=== PATIENT | male | born 1945 | race African-American/Black ===

== ENCOUNTER → 2017-10-02 | Outpatient (CLI) | payer OTHER ==
[~2017-10-02] MED LIST: ACET-2178 PO; FOLI-43 PO; GABA300C PO; HYDR-4134 PO; LOSA50TA20 PO; METO25TA6 PO; NIFE60TA64 PO; RIVA10TA PO; SUCR1TAB PO; TAMS-11 PO; TEMA15CA PO; THIAMINE PO; TRAM50TA3 PO; [UNRECOGNIZED DRUG - OTHER]
[2017-10-02 11:39] LABS: BG BASE EXCESS 0.7 mmol/L (-2.0-2.0); BG CARBOXYHEMOGLOBIN 0.7 % (0.5-1.5); BG DEOXYHEMOGLOBIN 2.5 % (0.0-5.0); BG FRACTION INSPIRED OXYGEN 21; BG HCO3 ACT 24.2 mmol/L (22.0-26.0); BG METHEMOGLOBIN 0.2 % (0.0-1.5); BG OXYGEN SATURATION 97.5 % (92.0-98.5); BG OXYHEMOGLOBIN 96.6 % (94.0-97.0); BG PH 7.446 (7.350-7.450); BG SAMPLE SITE RIGHT RADIAL; BG TOTAL HEMOGLOBIN 16.6 g/dL (12.0-18.0); BG VENT MODE ROOM AIR
== END | disposition home or self-care (01) ==
LOC: LAB 10:49
PROVIDERS: ATTEND Internal Medicine Pulmonary Disease
DX: I26.99 Other pulmonary embolism without acute cor pulmonale (principal)
CPT/HCPCS: 36600; 82375; 82805

== ENCOUNTER 2019-09-10 19:48 | Inpatient (IN) | payer MEDICARE, OTHER ==
[~2019-09-10] VITALS: Ht 190.5 cm; Wt 100.2 kg
[~2019-09-10 19:48] MED LIST changes: -ACET-2178 PO; -LOSA50TA20 PO; +LOSA50TA41 PO; +TOPUD PO
[2019-09-10] MEDS ORDERED: SODIUM CHLORIDE 0.9% 500 ML IV ONE (20:15)
[2019-09-10 20:40] LABS: BASOPHILS % 0.5 % (0.0-2.0); EOSINOPHILS % 1.5 % (0.0-5.0); HEMATOCRIT. 33.4 % (42.0-52.0); HEMOGLOBIN. 11.3 g/dL (14.0-18.0); LYMPHOCYTES % 55.4 % (20.0-50.0); MEAN CORPUSCULAR HEMOGLOBIN 29.1 pg (28.0-32.0); MEAN CORPUSCULAR VOLUME 86.1 fL (80.0-94.0); MEAN PLATELET VOLUME 9.6 fl (7.4-10.4); MONOCYTES % 7.9 % (2.0-8.0); NEUTROPHILS % 34.7 % (40.0-76.0); PLATELET 132 x1000/uL (130-400); RED BLOOD CELL COUNT 3.88 mill/uL (4.7-6.1); RED CELL DISTRIBUTION WIDTH 14.2 % (11.6-14.6)
[2019-09-10 20:42] LABS: CHLORIDE 111 mEq/L (98-107)
[2019-09-10 22:47] LABS: *AMPHETAMINES SCREEN URINE NEGATIVE (NEGATIVE); *BARBITURATES SCREEN URINE NEGATIVE (NEGATIVE)
[2019-09-10 22:48] LABS: *BENZODIAZEPINES SCREEN URINE NEGATIVE (NEGATIVE); *COCAINE SCREEN URINE NEGATIVE (NEGATIVE); CANNABINOID URINE SCREEN NEGATIVE (NEGATIVE); METHADONE URINE SCREEN NEGATIVE (NEGATIVE); OPIATES URINE SCREEN NEGATIVE (NEGATIVE); PHENCYCLIDINE URINE SCREEN NEGATIVE (NEGATIVE)
[2019-09-10 23:39] VITALS: BP 136/66
[2019-09-11] VITALS (13 sets, daily range): BP systolic 127–180; BP diastolic 56–86
[2019-09-11] MEDS ORDERED: DOXA8TAB81 MT (00:23)
[2019-09-11] MEDS ORDERED: OMEP20TA2 MT (00:23)
[2019-09-11] MEDS ORDERED: TAMS-11 PO (00:23)
[2019-09-11] MEDS ORDERED: SUCR1TAB PO (00:23)
[2019-09-11] MEDS ORDERED: DONE10TA36 MT (00:23)
[2019-09-11] MEDS ORDERED: MEMA10TA55 MT (00:23)
[2019-09-11] MEDS ORDERED: METO-411 MT (00:23)
[2019-09-11] MEDS ORDERED: HYDR-4134 MT (00:23)
[2019-09-11] MEDS ORDERED: FOLI-43 MT (00:23)
[2019-09-11] MEDS ORDERED: IBUP-2030 MT (00:23)
[2019-09-11] MEDS ORDERED: GABA-290 MT (00:23)
[2019-09-11] MEDS ORDERED: NIFE20CA MT (00:23)
[2019-09-11] MEDS ORDERED: LOPHC2 MT (00:23)
[2019-09-11] MEDS ORDERED: LOSA100T32 MT (00:23)
[2019-09-11] MEDS ORDERED: HYDR12.54 PO (00:23)
[2019-09-11] MEDS ORDERED: ATROPINE SULFATE 1MG/ML VIAL IV PRN (00:45)
[2019-09-11] MEDS: HYDROCODONE/ACETAMINOPHEN 5/325MG TABLET PO PRN ×4 (01:03→21:54)
[2019-09-11] MEDS ORDERED: DEXT 5%/0.9% NACL KCL 20MEQ/L 1,000 ML IV ONE (02:00)
[2019-09-11] MEDS ORDERED: POTASSIUM CHLORIDE 20MEQ TABLET SR PO NR (02:00)
[2019-09-11 06:50] LABS: T4 FREE 0.96 ng/dL (0.76-1.46)
[2019-09-11 07:10] LABS: BASOPHILS % 0.3 % (0.0-2.0); EOSINOPHILS % 1.6 % (0.0-5.0); HEMOGLOBIN. 10.7 g/dL (14.0-18.0); MEAN CORPUSCULAR HEMOGLOBIN 28.8 pg (28.0-32.0); MEAN CORPUSCULAR VOLUME 86.2 fL (80.0-94.0); MEAN PLATELET VOLUME 9.8 fl (7.4-10.4); NEUTROPHILS % 28.1 % (40.0-76.0); PLATELET 136 x1000/uL (130-400); RED BLOOD CELL COUNT 3.72 mill/uL (4.7-6.1); RED CELL DISTRIBUTION WIDTH 14.3 % (11.6-14.6)
[2019-09-11] MEDS: GABAPENTIN 300MG CAPSULE PO SCH ×3 (09:03→21:52)
[2019-09-11] MEDS: PANTOPRAZOLE 40MG DR TABLET PO SCH (09:03)
[2019-09-11] MEDS: HEPARIN 5000 UNITS/ML VIAL SUBCUT SCH ×2 (09:03→21:51)
[2019-09-11] MEDS: TAMSULOSIN HCL 0.4MG SR CAPSULE PO SCH (09:03)
[2019-09-11] MEDS: HYDRALAZINE HCL 25MG TABLET PO SCH ×3 (09:04→21:52)
[2019-09-11] MEDS: AMLODIPINE 5MG TABLET PO SCH (11:13)
[2019-09-11] MEDS ORDERED: ACETAMINOPHEN 325MG TABLET PO PRN (11:45)
[2019-09-11] MEDS ORDERED: IPRATROPIUM/ALBUTEROL 0.5-3(2.5)MG/3ML NEB HHN PRN (15:15)
[2019-09-11] MEDS: SUCRALFATE 1G TABLET PO SCH ×2 (15:40→21:50)
[2019-09-11] MEDS: FOLIC ACID 1MG TABLET PO SCH (15:40)
[2019-09-11] MEDS: THIAMINE HCL 100MG TABLET PO SCH (15:40)
[2019-09-11 15:50] LABS: CLARITY URINE CLEAR (CLEAR); COLOR URINE YELLOW (YELLOW); KETONES URINE NEGATIVE (NEGATIVE); LEUKOCYTE ESTERASE URINE NEGATIVE (NEGATIVE); NITRITE URINE NEGATIVE (NEGATIVE); OCCULT BLOOD URINE NEGATIVE (NEGATIVE); PH URINE 5.5 (4.5-8.0); PROTEIN URINE NEGATIVE (NEGATIVE); SPECIFIC GRAVITY URINE 1.021 (1.005-1.030); UROBILINOGEN URINE 0.2 E.U./dL (0.2-1.0)
[2019-09-11 16:58] LABS: INR 1.1
[2019-09-12] VITALS (12 sets, daily range): BP systolic 153–175; BP diastolic 71–107
[2019-09-12] MEDS: HYDRALAZINE HCL 25MG TABLET PO SCH (05:54)
[2019-09-12] MEDS: SUCRALFATE 1G TABLET PO SCH ×4 (05:54→21:47)
[2019-09-12] MEDS: GABAPENTIN 300MG CAPSULE PO SCH ×3 (05:54→21:47)
[2019-09-12] MEDS: PANTOPRAZOLE 40MG DR TABLET PO SCH (05:54)
[2019-09-12 07:11] LABS: BASOPHILS % 0.6 % (0.0-2.0); EOSINOPHILS % 1.9 % (0.0-5.0); HEMATOCRIT. 36.3 % (42.0-52.0); HEMOGLOBIN. 12.3 g/dL (14.0-18.0); LYMPHOCYTES % 67.7 % (20.0-50.0); MEAN CORPUSCULAR HEMOGLOBIN 28.8 pg (28.0-32.0); MEAN CORPUSCULAR VOLUME 85.1 fL (80.0-94.0); MEAN PLATELET VOLUME 10.2 fl (7.4-10.4); MONOCYTES % 6.8 % (2.0-8.0); PLATELET 146 x1000/uL (130-400); RED BLOOD CELL COUNT 4.27 mill/uL (4.7-6.1); RED CELL DISTRIBUTION WIDTH 14.2 % (11.6-14.6)
[2019-09-12 07:28] LABS: CHLORIDE 109 mEq/L (98-107)
[2019-09-12 07:36] LABS: TOTAL IRON BINDING CAPACITY 277 ug/dL (250-450)
[2019-09-12] MEDS: HEPARIN 5000 UNITS/ML VIAL SUBCUT SCH (08:10)
[2019-09-12] MEDS: TAMSULOSIN HCL 0.4MG SR CAPSULE PO SCH (08:10)
[2019-09-12] MEDS: THIAMINE HCL 100MG TABLET PO SCH (08:11)
[2019-09-12] MEDS: AMLODIPINE 5MG TABLET PO SCH ×2 (08:11→21:47)
[2019-09-12] MEDS: FOLIC ACID 1MG TABLET PO SCH (08:11)
[2019-09-12] MEDS: HYDROCODONE/ACETAMINOPHEN 5/325MG TABLET PO PRN ×3 (08:11→23:51)
[2019-09-12] MEDS: HYDRALAZINE HCL 50MG TABLET PO SCH ×2 (12:50→21:47)
[2019-09-13] VITALS (11 sets, daily range): BP systolic 107–187; BP diastolic 63–97
[2019-09-13] MEDS: HYDRALAZINE HCL 50MG TABLET PO SCH ×3 (06:44→21:31)
[2019-09-13] MEDS: SUCRALFATE 1G TABLET PO SCH ×4 (06:45→21:31)
[2019-09-13] MEDS: PANTOPRAZOLE 40MG DR TABLET PO SCH (06:45)
[2019-09-13] MEDS: GABAPENTIN 300MG CAPSULE PO SCH ×3 (06:45→21:31)
[2019-09-13 06:49] LABS: BASOPHILS % 0.7 % (0.0-2.0); HEMATOCRIT. 35.1 % (42.0-52.0); HEMOGLOBIN. 11.8 g/dL (14.0-18.0); LYMPHOCYTES % 58.9 % (20.0-50.0); MEAN CORPUSCULAR HEMOGLOBIN 28.7 pg (28.0-32.0); MEAN CORPUSCULAR VOLUME 85.5 fL (80.0-94.0); MEAN PLATELET VOLUME 9.8 fl (7.4-10.4); MONOCYTES % 8.9 % (2.0-8.0); NEUTROPHILS % 29.5 % (40.0-76.0); PLATELET 145 x1000/uL (130-400); RED BLOOD CELL COUNT 4.11 mill/uL (4.7-6.1); RED CELL DISTRIBUTION WIDTH 14.2 % (11.6-14.6)
[2019-09-13 07:13] LABS: CHLORIDE 109 mEq/L (98-107)
[2019-09-13] MEDS: THIAMINE HCL 100MG TABLET PO SCH (08:14)
[2019-09-13] MEDS: TAMSULOSIN HCL 0.4MG SR CAPSULE PO SCH (08:14)
[2019-09-13] MEDS: AMLODIPINE 5MG TABLET PO SCH ×2 (08:14→21:31)
[2019-09-13] MEDS: FOLIC ACID 1MG TABLET PO SCH (08:14)
[2019-09-13] MEDS ORDERED: MIDAZOLAM HCL 2 MG/2 ML VIAL ONE ×2 (08:46→10:17)
[2019-09-13] MEDS ORDERED: FENTANYL CITRATE/PF 50MCG/ML 2ML VIAL ONE ×2 (08:46→10:18)
[2019-09-13] MEDS ORDERED: GENTAMICIN SULF 40MG/ML 2ML VIAL ONE (08:46)
[2019-09-13] MEDS ORDERED: CEFAZOLIN 1000MG PREMIX 100 ML IV ONE (08:46)
[2019-09-13] MEDS ORDERED: LIDOCAINE HCL 1% 20ML VIAL (Pyxis) INJ ONE (08:47)
[2019-09-13] MEDS ORDERED: IODIXANOL 320MG/ML 100 ML BOTTLE IV ONE (08:47)
[2019-09-13] MEDS ORDERED: GENTAMICIN/NS IRRIGATION 500 ML IR ONE (08:47)
[2019-09-13] MEDS ORDERED: DIPHENHYDRAMINE 50MG/ML VIAL ONE (09:52)
[2019-09-13] MEDS ORDERED: HYDRALAZINE 20MG/ML VIAL ONE (10:34)
[2019-09-13] MEDS: HYDROCODONE/ACETAMINOPHEN 5/325MG TABLET PO PRN ×3 (11:26→21:32)
[2019-09-13] MEDS: METOPROLOL TARTRATE 50MG TABLET PO SCH ×3 (11:26→22:09)
[2019-09-13] MEDS: MEMANTINE HCL 10MG TABLET PO SCH (16:41)
[2019-09-13] MEDS: RIVAROXABAN 15 MG TABLET PO SCH (16:41)
[2019-09-14] VITALS (10 sets, daily range): BP systolic 141–172; BP diastolic 75–95
[2019-09-14] MEDS: HYDRALAZINE 20MG/ML VIAL IV PRN ×2 (00:23→16:46)
[2019-09-14] MEDS: FAMOTIDINE 20MG TABLET PO SCH ×2 (06:32→16:44)
[2019-09-14] MEDS: GABAPENTIN 300MG CAPSULE PO SCH ×2 (06:32→14:31)
[2019-09-14] MEDS: HYDRALAZINE HCL 50MG TABLET PO SCH (06:33)
[2019-09-14] MEDS: SUCRALFATE 1G TABLET PO SCH ×3 (06:33→16:44)
[2019-09-14] MEDS: HYDROCODONE/ACETAMINOPHEN 5/325MG TABLET PO PRN ×2 (06:33→11:46)
[2019-09-14] MEDS: RIVAROXABAN 15 MG TABLET PO SCH (06:33)
[2019-09-14 07:28] LABS: CHLORIDE 107 mEq/L (98-107)
[2019-09-14 07:37] LABS: BASOPHILS % 0.4 % (0.0-2.0); EOSINOPHILS % 1.9 % (0.0-5.0); HEMATOCRIT. 39.4 % (42.0-52.0); HEMOGLOBIN. 13.3 g/dL (14.0-18.0); LYMPHOCYTES % 54.9 % (20.0-50.0); MEAN PLATELET VOLUME 9.6 fl (7.4-10.4); MONOCYTES % 7.5 % (2.0-8.0); NEUTROPHILS % 35.3 % (40.0-76.0); PLATELET 160 x1000/uL (130-400); RED BLOOD CELL COUNT 4.58 mill/uL (4.7-6.1); RED CELL DISTRIBUTION WIDTH 14.5 % (11.6-14.6)
[2019-09-14] MEDS: TAMSULOSIN HCL 0.4MG SR CAPSULE PO SCH (08:56)
[2019-09-14] MEDS: THIAMINE HCL 100MG TABLET PO SCH (08:57)
[2019-09-14] MEDS: MEMANTINE HCL 10MG TABLET PO SCH ×2 (08:57→16:44)
[2019-09-14] MEDS: AMLODIPINE 5MG TABLET PO SCH (08:57)
[2019-09-14] MEDS: METOPROLOL TARTRATE 50MG TABLET PO SCH (08:58)
[2019-09-14] MEDS: FOLIC ACID 1MG TABLET PO SCH (08:58)
[2019-09-14] MEDS ORDERED: DONEPEZIL HCL 10MG TABLET PO SCH (09:00)
[2019-09-14] MEDS ORDERED: CEPH-568 MT (10:56)
[2019-09-14] MEDS ORDERED: TRAM50TA MT (10:56)
[2019-09-14] MEDS ORDERED: HYDRALAZINE 20MG/ML VIAL IV NR (11:00)
[2019-09-14] MEDS ORDERED: HYDRALAZINE HCL 50MG TABLET PO SCH (14:00)
[2019-11-26] MEDS ORDERED: HYDR-3282 PO (00:38)
== END 2019-09-14 17:29 | disposition home or self-care (01) | DRG 242 ==
LOC: ER 19:48 → ENRESERV 22:28 → 3WST 23:03
PROVIDERS: ADMIT Internal Medicine; ATTEND Internal Medicine
PROC: 0JH606Z Insertion of Pacemaker, Dual Chamber into Chest Subcutaneous Tissue and Fascia, Open Approach (ICD-10-PCS; principal; 2019-09-13)
PROC: 02H63JZ Insertion of Pacemaker Lead into Right Atrium, Percutaneous Approach (ICD-10-PCS; 2019-09-13)
PROC: B5171ZZ Fluoroscopy of Left Subclavian Vein using Low Osmolar Contrast (ICD-10-PCS; 2019-09-13)
PROC: 02HK3JZ Insertion of Pacemaker Lead into Right Ventricle, Percutaneous Approach (ICD-10-PCS; 2019-09-13)
DX: I49.5 Sick sinus syndrome (principal); I50.33 Acute on chronic diastolic (congestive) heart failure; N17.9 Acute kidney failure, unspecified; I11.0 Hypertensive heart disease with heart failure; D64.9 Anemia, unspecified; E86.0 Dehydration; E87.6 Hypokalemia; F03.90 Unspecified dementia, unspecified severity, without behavioral disturbance, psychotic disturbance, mood disturbance, and anxiety; N40.0 Benign prostatic hyperplasia without lower urinary tract symptoms; I16.0 Hypertensive urgency; R73.03 Prediabetes; I95.9 Hypotension, unspecified; R73.9 Hyperglycemia, unspecified; G90.8 Other disorders of autonomic nervous system; Z86.73 Personal history of transient ischemic attack (TIA), and cerebral infarction without residual deficits; Z95.0 Presence of cardiac pacemaker; Z79.1 Long term (current) use of non-steroidal anti-inflammatories (NSAID); Z79.01 Long term (current) use of anticoagulants; Z79.899 Other long term (current) drug therapy; Z03.818 Encounter for observation for suspected exposure to other biological agents ruled out
CPT/HCPCS: 33208; 36415; 71045; 75820; 80048; 80053; 80061; 80305; 81003; 83036; 83540; 83550; 83735; 83880; 84153; 84439; 84443; 84484; 85025; 86850; 86900; 93005; 93306; 93970; 96365; 97116; 97162; 99291; C1785; C1893; C1898; J0360; J0690; J1200; J1580; J1644; J2250; J3010; J3490; J7040; Q9967; G0103; U0003-CS

== ENCOUNTER 2019-10-08 00:39 | Inpatient (IN) | payer OTHER ==
[~2019-10-08] VITALS: Ht 190.5 cm; Wt 100.2 kg
[~2019-10-08 00:39] MED LIST changes: +CEPH-568 MT; +DOXA8TAB81 MT; +FOLI-43 MT; -FOLI-43 PO; +GABA-290 MT; -GABA300C PO; +HYDR-4134 MT; -HYDR-4134 PO; +HYDR12.54 PO; +IBUP-2030 MT; +LOSA100T32 MT; -LOSA50TA41 PO; -METO25TA6 PO; +NIFE20CA MT; -NIFE60TA64 PO; +OMEP20TA2 MT; -RIVA10TA PO; -THIAMINE PO; +TRAM50TA MT; -TRAM50TA3 PO
[2019-10-08] MEDS ORDERED: SODIUM CHLORIDE 0.9% 1,000 ML IV ONE (01:27)
[2019-10-08] MEDS ORDERED: ASPIRIN 81MG TABLET PO ONE (01:30)
[2019-10-08 02:38] LABS: CHLORIDE 110 mEq/L (98-107)
[2019-10-08 02:49] LABS: BASOPHILS % 0.5 % (0.0-2.0); HEMATOCRIT. 35.3 % (42.0-52.0); HEMOGLOBIN. 11.7 g/dL (14.0-18.0); LYMPHOCYTES % 50.6 % (20.0-50.0); MEAN CORPUSCULAR HEMOGLOBIN 28.8 pg (28.0-32.0); MEAN CORPUSCULAR VOLUME 87.3 fL (80.0-94.0); MONOCYTES % 8.6 % (2.0-8.0); NEUTROPHILS % 38.3 % (40.0-76.0); PLATELET 181 x1000/uL (130-400); RED BLOOD CELL COUNT 4.05 mill/uL (4.7-6.1); RED CELL DISTRIBUTION WIDTH 15.1 % (11.6-14.6)
[2019-10-08 07:59] LABS: CLARITY URINE CLEAR (CLEAR); COLOR URINE YELLOW (YELLOW); KETONES URINE TRACE (NEGATIVE); LEUKOCYTE ESTERASE URINE NEGATIVE (NEGATIVE); NITRITE URINE NEGATIVE (NEGATIVE); OCCULT BLOOD URINE NEGATIVE (NEGATIVE); PROTEIN URINE NEGATIVE (NEGATIVE); SPECIFIC GRAVITY URINE 1.019 (1.005-1.030); UROBILINOGEN URINE 0.2 E.U./dL (0.2-1.0)
[2019-10-08 10:00] VITALS: BP 143/84
[2019-10-08 12:05] VITALS: BP 115/82
[2019-10-08] MEDS ORDERED: POTASSIUM CHLORIDE 20MEQ TABLET SR PO NR (13:15)
[2019-10-08] MEDS ORDERED: MAGNESIUM/ALUMINUM HYDROXIDE/SIMETHICONE 30ML UDC PO PRN (13:45)
[2019-10-08] MEDS ORDERED: GUAIFENESIN 200MG/10ML SUGAR FREE UDC PO PRN (13:45)
[2019-10-08] MEDS ORDERED: LORAZEPAM 0.5MG TABLET PO PRN (13:45)
[2019-10-08] MEDS ORDERED: ACETAMINOPHEN 650MG/20.3ML UDC GT PRN (13:45)
[2019-10-08] MEDS ORDERED: DIPHENHYDRAMINE 50MG/ML VIAL IV PRN (13:45)
[2019-10-08] MEDS ORDERED: ONDANSETRON HCL 4MG/2ML INJ IV PRN (13:45)
[2019-10-08] MEDS ORDERED: NA PHOS,M-B/NA PHOS,DI-BA ENEMA 118ML PR PRN (13:45)
[2019-10-08] MEDS ORDERED: DOCUSATE SODIUM 100MG CAPSULE PO PRN (13:45)
[2019-10-08] MEDS ORDERED: IPRATROPIUM/ALBUTEROL 0.5-3(2.5)MG/3ML NEB NEB PRN (13:45)
[2019-10-08] MEDS: SODIUM CHLORIDE 0.45% 1,000 ML IV SCH ×2 (14:00→23:06)
[2019-10-08 16:00] VITALS: BP 132/85
[2019-10-08 16:03] LABS: *AMPHETAMINES SCREEN URINE NEGATIVE (NEGATIVE); *BARBITURATES SCREEN URINE NEGATIVE (NEGATIVE); *BENZODIAZEPINES SCREEN URINE NEGATIVE (NEGATIVE); *COCAINE SCREEN URINE NEGATIVE (NEGATIVE)
[2019-10-08 16:04] LABS: CANNABINOID URINE SCREEN NEGATIVE (NEGATIVE); METHADONE URINE SCREEN NEGATIVE (NEGATIVE); OPIATES URINE SCREEN NEGATIVE (NEGATIVE); PHENCYCLIDINE URINE SCREEN NEGATIVE (NEGATIVE)
[2019-10-08] MEDS: HYDROCODONE/ACETAMINOPHEN 5/325MG TABLET PO PRN (17:38)
[2019-10-08 20:00] VITALS: BP 155/74
[2019-10-08] MEDS: FAMOTIDINE 20MG TABLET PO SCH (20:14)
[2019-10-08] MEDS: HEPARIN 5000 UNITS/ML VIAL SUBCUT SCH (20:15)
[2019-10-08 20:35] LABS: INR 1.1; PROTHROMBIN TIME 11.9 sec (9.6-11.0)
[2019-10-08 20:37] LABS: CREATINE KINASE 169 IU/L (39-308)
[2019-10-08 20:38] LABS: CREATINE KINASE MB FRACTION 1.8 ng/mL (0.5-3.6)
[2019-10-08 21:40] VITALS: BP 161/91
[2019-10-08] MEDS: CLONIDINE 0.1MG TABLET PO PRN (22:06)
[2019-10-08] MEDS: GABAPENTIN 300MG CAPSULE PO SCH (22:13)
[2019-10-09] VITALS (8 sets, daily range): BP systolic 117–172; BP diastolic 79–101
[2019-10-09] MEDS: CLONIDINE 0.1MG TABLET PO PRN (05:06)
[2019-10-09] MEDS ORDERED: HYDRALAZINE 20MG/ML VIAL IV PRN (05:30)
[2019-10-09 07:48] LABS: BASOPHILS % 0.7 % (0.0-2.0); EOSINOPHILS % 2.8 % (0.0-5.0); HEMATOCRIT. 35.6 % (42.0-52.0); HEMOGLOBIN. 11.9 g/dL (14.0-18.0); LYMPHOCYTES % 50.7 % (20.0-50.0); MEAN CORPUSCULAR VOLUME 86.6 fL (80.0-94.0); MEAN PLATELET VOLUME 9.3 fl (7.4-10.4); MONOCYTES % 9.4 % (2.0-8.0); NEUTROPHILS % 36.4 % (40.0-76.0); PLATELET 180 x1000/uL (130-400); RED BLOOD CELL COUNT 4.11 mill/uL (4.7-6.1); RED CELL DISTRIBUTION WIDTH 14.9 % (11.6-14.6)
[2019-10-09 07:55] LABS: CHLORIDE 108 mEq/L (98-107)
[2019-10-09 08:09] LABS: HDL CHOLESTEROL 44 mg/dL (40-59)
[2019-10-09 08:11] LABS: CREATINE KINASE 193 IU/L (39-308)
[2019-10-09 08:13] LABS: CREATINE KINASE MB FRACTION 1.7 ng/mL (0.5-3.6); LDL CHOLESTEROL 99 mg/dL (5-100)
[2019-10-09 08:15] LABS: T4 FREE 0.95 ng/dL (0.76-1.46)
[2019-10-09] MEDS: ASPIRIN 81MG EC TABLET PO SCH (10:00)
[2019-10-09] MEDS: AMLODIPINE 10MG TABLET PO SCH (10:00)
[2019-10-09] MEDS: SODIUM CHLORIDE 0.45% 1,000 ML IV SCH (10:01)
[2019-10-09] MEDS: HEPARIN 5000 UNITS/ML VIAL SUBCUT SCH ×2 (10:01→21:27)
[2019-10-09] MEDS ORDERED: HYDRALAZINE HCL 100MG TABLET PO SCH (13:15)
[2019-10-09] MEDS ORDERED: VANCOMYCIN 2,000 MG in DEXT 5% WATER 500 ML IV SCH (15:00)
[2019-10-09] MEDS: GABAPENTIN 300MG CAPSULE PO SCH (16:30)
[2019-10-09] MEDS: HYDROCODONE/ACETAMINOPHEN 5/325MG TABLET PO PRN (16:50)
[2019-10-09] MEDS: FAMOTIDINE 20MG TABLET PO SCH (21:26)
[2019-10-09] MEDS: HYDRALAZINE HCL 100MG TABLET PO SCH (21:26)
[2019-10-10] VITALS: BP_SYST 143; BP_SYST 150; BP_SYST 180; BP_DIAS 90; BP_DIAS 98; BP_DIAS 99
[2019-10-10] MEDS: SODIUM CHLORIDE 0.45% 1,000 ML IV SCH ×2 (00:51→15:45)
[2019-10-10 04:00] VITALS: BP 161/85
[2019-10-10] MEDS ORDERED: VANCOMYCIN 1500MG in DEXTROSE 5% WATER 250ML IV SCH (06:00)
[2019-10-10] MEDS: CLONIDINE 0.1MG TABLET PO PRN ×2 (06:04→12:33)
[2019-10-10 06:59] LABS: BASOPHILS % 1.1 % (0.0-2.0); EOSINOPHILS % 3.6 % (0.0-5.0); HEMATOCRIT. 34.9 % (42.0-52.0); HEMOGLOBIN. 11.7 g/dL (14.0-18.0); LYMPHOCYTES % 51.1 % (20.0-50.0); MEAN CORPUSCULAR HEMOGLOBIN 29.1 pg (28.0-32.0); MEAN CORPUSCULAR VOLUME 86.9 fL (80.0-94.0); MEAN PLATELET VOLUME 9.2 fl (7.4-10.4); MONOCYTES % 8.5 % (2.0-8.0); NEUTROPHILS % 35.7 % (40.0-76.0); PLATELET 180 x1000/uL (130-400); RED BLOOD CELL COUNT 4.02 mill/uL (4.7-6.1); RED CELL DISTRIBUTION WIDTH 15.1 % (11.6-14.6)
[2019-10-10 07:07] LABS: CHLORIDE 108 mEq/L (98-107)
[2019-10-10 08:00] VITALS: BP_SYST 126; BP_SYST 132; BP_DIAS 70; BP_DIAS 77; BP_DIAS 78
[2019-10-10] MEDS: AMLODIPINE 10MG TABLET PO SCH (09:29)
[2019-10-10] MEDS: ASPIRIN 81MG EC TABLET PO SCH (09:30)
[2019-10-10] MEDS: HYDRALAZINE HCL 100MG TABLET PO SCH (09:30)
[2019-10-10] MEDS: HEPARIN 5000 UNITS/ML VIAL SUBCUT SCH (09:31)
[2019-10-10 12:00] VITALS: BP 157/91
[2019-10-10] MEDS: HYDROCODONE/ACETAMINOPHEN 5/325MG TABLET PO PRN (13:18)
[2019-10-10 16:00] VITALS: BP 149/82
[2019-10-10 16:08] VITALS: BP 149/82
[2019-10-10] MEDS: GABAPENTIN 300MG CAPSULE PO SCH (16:27)
== END 2019-10-10 18:58 | disposition home or self-care (01) | DRG 682 ==
LOC: ER 00:39 → 7WST 03:23 → ENRESERV 07:39 → ER 10:17 → 5WST 21:35
PROVIDERS: ADMIT Internal Medicine; ATTEND Internal Medicine
DX: N17.9 Acute kidney failure, unspecified (principal); I50.33 Acute on chronic diastolic (congestive) heart failure; G90.8 Other disorders of autonomic nervous system; N40.0 Benign prostatic hyperplasia without lower urinary tract symptoms; R53.1 Weakness; I11.0 Hypertensive heart disease with heart failure; D64.9 Anemia, unspecified; E78.5 Hyperlipidemia, unspecified; E87.6 Hypokalemia; N31.2 Flaccid neuropathic bladder, not elsewhere classified; F03.90 Unspecified dementia, unspecified severity, without behavioral disturbance, psychotic disturbance, mood disturbance, and anxiety; Z79.899 Other long term (current) drug therapy; Z86.73 Personal history of transient ischemic attack (TIA), and cerebral infarction without residual deficits; Z95.0 Presence of cardiac pacemaker
CPT/HCPCS: 36415; 71045; 76770; 80048; 80053; 80061; 80305; 81003; 82550; 82553; 83605; 83880; 84153; 84439; 84443; 84484; 85025; 87635; 93005; 93970; 99291; J0360; J1644; J3370; J7030; J7060; G0103

== ENCOUNTER 2019-11-19 19:39 | Emergency (ER) | payer OTHER ==
[~2019-11-19] VITALS: Ht 182.9 cm; Wt 91.0 kg
[~2019-11-19 19:39] MED LIST changes: -CEPH-568 MT; -HYDR12.54 PO; -IBUP-2030 MT
[2019-11-19] MEDS ORDERED: SODIUM CHLORIDE 0.9% 1,000 ML IV ONE (20:00)
[2019-11-19 20:15] VITALS: BP 107/68
[2019-11-19 20:45] LABS: BASOPHILS % 0.6 % (0.0-2.0); EOSINOPHILS % 0.9 % (0.0-5.0); HEMATOCRIT. 34.1 % (42.0-52.0); HEMOGLOBIN. 11.3 g/dL (14.0-18.0); LYMPHOCYTES % 38.9 % (20.0-50.0); MEAN CORPUSCULAR HEMOGLOBIN 28.9 pg (28.0-32.0); MEAN CORPUSCULAR VOLUME 87.6 fL (80.0-94.0); MEAN PLATELET VOLUME 9.5 fl (7.4-10.4); MONOCYTES % 8.4 % (2.0-8.0); NEUTROPHILS % 51.2 % (40.0-76.0); PLATELET 163 x1000/uL (130-400); RED BLOOD CELL COUNT 3.89 mill/uL (4.7-6.1)
[2019-11-19 20:50] LABS: CHLORIDE 109 mEq/L (98-107)
== END 2019-11-19 23:29 | disposition home or self-care (01) ==
LOC: ER 19:39
DX: R53.83 Other fatigue (principal); N17.9 Acute kidney failure, unspecified; I25.2 Old myocardial infarction; I10 Essential (primary) hypertension; Z86.73 Personal history of transient ischemic attack (TIA), and cerebral infarction without residual deficits; Z79.899 Other long term (current) drug therapy
CPT/HCPCS: 36415; 80053; 83605; 84484; 85025; 93005; 96360; 99284; J7030

== ENCOUNTER → 2020-10-06 | Day surgery (SDC) | payer OTHER, MEDICAID ==
[~2020-10-06] VITALS: Ht 190.5 cm; Wt 97.5 kg
[~2020-10-06] MED LIST changes: +BUPIVACAINE HCL/PF 0.75% (7.5MG/ML) 10ML INJ NR; +HYDR-4348 PO; +IOHEXOL-300 50 ML BOTTLE IV ONE; +LIDOCAINE HCL 1% 20ML VIAL (Pyxis) INJ ONE; +ROPIVACAINE HCL 10MG/ML 20 ML VIAL EPI ONE; +ROPIVACAINE HCL 2MG/ML (0.2%) 200ML BOTTLE IR ONE; +SODIUM CHLORIDE 0.9% 10ML VIAL ONE; +TRIAMCINOLONE ACETONIDE 40MG/ML 1ML VIAL IM NR; -[UNRECOGNIZED DRUG - OTHER]
== END | disposition home or self-care (01) ==
LOC: RAD 10:26
PROVIDERS: ATTEND Orthopaedic Surgery
DX: M16.11 Unilateral primary osteoarthritis, right hip (principal); Z79.899 Other long term (current) drug therapy; Z82.49 Family history of ischemic heart disease and other diseases of the circulatory system; Z98.890 Other specified postprocedural states
CPT/HCPCS: 20610; 77002; J3301; J3490; Q9967; 20611

== ENCOUNTER 2020-10-14 14:25 | Inpatient (IN) | payer OTHER, MEDICAID ==
[2020-10-14] VITALS: BP 131/67
[~2020-10-14] VITALS: Ht 182.9 cm; Wt 100.7 kg
[~2020-10-14 14:25] MED LIST changes: -BUPIVACAINE HCL/PF 0.75% (7.5MG/ML) 10ML INJ NR; -IOHEXOL-300 50 ML BOTTLE IV ONE; -LIDOCAINE HCL 1% 20ML VIAL (Pyxis) INJ ONE; -ROPIVACAINE HCL 10MG/ML 20 ML VIAL EPI ONE; -ROPIVACAINE HCL 2MG/ML (0.2%) 200ML BOTTLE IR ONE; -SODIUM CHLORIDE 0.9% 10ML VIAL ONE; -TRIAMCINOLONE ACETONIDE 40MG/ML 1ML VIAL IM NR
[2020-10-14] MEDS ORDERED: MORPHINE SULFATE 4 MG/ML CPJ (NOT FOR IM USE) IV STA (15:15)
[2020-10-14 15:33] LABS: BASOPHILS % 0.3 % (0.0-2.0); EOSINOPHILS % 0.7 % (0.0-5.0); HEMATOCRIT. 35.9 % (42.0-52.0); LYMPHOCYTES % 50.3 % (20.0-50.0); MEAN CORPUSCULAR HEMOGLOBIN 28.9 pg (28.0-32.0); MEAN CORPUSCULAR VOLUME 86.5 fL (80.0-94.0); MEAN PLATELET VOLUME 9.8 fl (7.4-10.4); MONOCYTES % 6.1 % (2.0-8.0); NEUTROPHILS % 42.6 % (40.0-76.0); PLATELET 168 x1000/uL (130-400); RED BLOOD CELL COUNT 4.15 mill/uL (4.7-6.1); RED CELL DISTRIBUTION WIDTH 14.4 % (11.6-14.6)
[2020-10-14 15:36] LABS: CHLORIDE 109 mEq/L (98-107)
[2020-10-14] MEDS ORDERED: ONDANSETRON HCL 4MG/2ML INJ IV ONE (15:45)
[2020-10-14] MEDS ORDERED: KCL 10MEQ/50ML PREMIX 50 ML IV ONE (18:00)
[2020-10-14 22:45] VITALS: BP 131/67
[2020-10-15] VITALS: BP 107/65
[2020-10-15] MEDS: MORPHINE SULFATE 2 MG/ML CPJ (NOT FOR IM USE) IV PRN ×4 (00:47→22:33)
[2020-10-15] MEDS ORDERED: TEMAZEPAM 15MG CAPSULE PO PRN (01:15)
[2020-10-15 03:57] LABS: BASOPHILS % 0.4 % (0.0-2.0); EOSINOPHILS % 0.6 % (0.0-5.0); HEMATOCRIT. 33.9 % (42.0-52.0); HEMOGLOBIN. 11.3 g/dL (14.0-18.0); LYMPHOCYTES % 32.7 % (20.0-50.0); MEAN CORPUSCULAR HEMOGLOBIN 28.9 pg (28.0-32.0); MEAN CORPUSCULAR VOLUME 86.7 fL (80.0-94.0); MEAN PLATELET VOLUME 8.8 fl (7.4-10.4); MONOCYTES % 8.3 % (2.0-8.0); PLATELET 140 x1000/uL (130-400); RED BLOOD CELL COUNT 3.91 mill/uL (4.7-6.1); RED CELL DISTRIBUTION WIDTH 14.3 % (11.6-14.6)
[2020-10-15 04:00] VITALS: BP 104/76
[2020-10-15 04:00] LABS: CHLORIDE 112 mEq/L (98-107)
[2020-10-15 04:10] LABS: CREATINE KINASE 389 IU/L (39-308)
[2020-10-15 04:12] LABS: CREATINE KINASE MB FRACTION 2.2 ng/mL (0.5-3.6)
[2020-10-15] MEDS: GABAPENTIN 300MG CAPSULE PO SCH ×3 (07:30→22:32)
[2020-10-15] MEDS: PANTOPRAZOLE 40MG DR TABLET PO SCH (07:30)
[2020-10-15 08:00] VITALS: BP 163/77
[2020-10-15] MEDS: FOLIC ACID 1MG TABLET PO SCH (08:27)
[2020-10-15] MEDS: ASPIRIN 81MG TABLET PO SCH (08:27)
[2020-10-15] MEDS: HYDRALAZINE HCL 25MG TABLET PO SCH ×3 (08:28→22:32)
[2020-10-15] MEDS: LOSARTAN POTASSIUM 50 MG TABLET PO SCH ×2 (08:28→13:08)
[2020-10-15] MEDS: SUCRALFATE 1G TABLET PO SCH ×4 (08:28→20:53)
[2020-10-15] MEDS ORDERED: CEFTRIAXONE 1 G PREMIX 50 ML IV SCH (11:15)
[2020-10-15 12:00] VITALS: BP 156/80
[2020-10-15] MEDS: SODIUM CHLORIDE 0.45% 1,000 ML IV SCH (13:08)
[2020-10-15] MEDS: CEFTRIAXONE 1,000 MG in DEXTROSE 5% WATER 50 ML IV SCH (14:37)
[2020-10-15] MEDS ORDERED: BISACODYL 10MG SUPP PR PRN (15:00)
[2020-10-15] MEDS ORDERED: ACETAMINOPHEN 650MG SUPP PR PRN (15:00)
[2020-10-15] MEDS ORDERED: IPRATROPIUM/ALBUTEROL 0.5-3(2.5)MG/3ML NEB HHN PRN (15:00)
[2020-10-15 16:00] VITALS: BP 160/90
[2020-10-15 16:00] LABS: CREATINE KINASE 486 IU/L (39-308)
[2020-10-15 16:02] LABS: CREATINE KINASE MB FRACTION 2.3 ng/mL (0.5-3.6)
[2020-10-15 16:04] LABS: D-DIMER 3.39 mg/L FEU (<0.50); INR 1.1; PROTHROMBIN TIME 11.9 sec (9.6-11.0)
[2020-10-15 16:16] LABS: *AMPHETAMINES SCREEN URINE NEGATIVE (NEGATIVE); *BARBITURATES SCREEN URINE NEGATIVE (NEGATIVE); *BENZODIAZEPINES SCREEN URINE NEGATIVE (NEGATIVE); *COCAINE SCREEN URINE NEGATIVE (NEGATIVE)
[2020-10-15 16:17] LABS: CANNABINOID URINE SCREEN NEGATIVE (NEGATIVE); METHADONE URINE SCREEN NEGATIVE (NEGATIVE); OPIATES URINE SCREEN PRESUMTIVE POSITIVE (NEGATIVE); PHENCYCLIDINE URINE SCREEN NEGATIVE (NEGATIVE)
[2020-10-15] MEDS ORDERED: MORPHINE SULFATE 2 MG/ML CPJ (NOT FOR IM USE) IV NR (18:00)
[2020-10-15 20:00] VITALS: BP 160/87
[2020-10-15] MEDS: TAMSULOSIN HCL 0.4MG SR CAPSULE PO SCH (20:52)
[2020-10-15] MEDS: HYDROCODONE/ACETAMINOPHEN 5/325MG TABLET PO PRN (20:53)
[2020-10-16] VITALS: BP 176/97
[2020-10-16 04:00] VITALS: BP 175/92
[2020-10-16] MEDS: MORPHINE SULFATE 2 MG/ML CPJ (NOT FOR IM USE) IV PRN ×2 (04:34→10:50)
[2020-10-16] MEDS: SODIUM CHLORIDE 0.45% 1,000 ML IV SCH ×2 (04:35→16:34)
[2020-10-16] MEDS: GABAPENTIN 300MG CAPSULE PO SCH ×3 (05:12→21:51)
[2020-10-16] MEDS: HYDRALAZINE HCL 25MG TABLET PO SCH (05:13)
[2020-10-16 08:00] VITALS: BP 152/80
[2020-10-16] MEDS: FOLIC ACID 1MG TABLET PO SCH (09:51)
[2020-10-16] MEDS: LOSARTAN POTASSIUM 50 MG TABLET PO SCH (09:51)
[2020-10-16] MEDS: AMLODIPINE 5MG TABLET PO SCH ×2 (09:51→21:00)
[2020-10-16] MEDS: PANTOPRAZOLE 40MG DR TABLET PO SCH (09:51)
[2020-10-16] MEDS: SUCRALFATE 1G TABLET PO SCH ×4 (09:51→20:59)
[2020-10-16] MEDS: ASPIRIN 81MG TABLET PO SCH (09:51)
[2020-10-16 11:15] LABS: CHLORIDE 110 mEq/L (98-107)
[2020-10-16 11:41] LABS: BASOPHILS % 0.5 % (0.0-2.0); EOSINOPHILS % 0.8 % (0.0-5.0); HEMATOCRIT. 35.3 % (42.0-52.0); HEMOGLOBIN. 11.7 g/dL (14.0-18.0); LYMPHOCYTES % 41.2 % (20.0-50.0); MEAN CORPUSCULAR HEMOGLOBIN 28.6 pg (28.0-32.0); MEAN CORPUSCULAR VOLUME 86.4 fL (80.0-94.0); MEAN PLATELET VOLUME 9.6 fl (7.4-10.4); MONOCYTES % 9.7 % (2.0-8.0); NEUTROPHILS % 47.8 % (40.0-76.0); PLATELET 150 x1000/uL (130-400); RED BLOOD CELL COUNT 4.09 mill/uL (4.7-6.1); RED CELL DISTRIBUTION WIDTH 14.4 % (11.6-14.6)
[2020-10-16 12:00] VITALS: BP 176/100
[2020-10-16] MEDS: CEFTRIAXONE 1,000 MG in DEXTROSE 5% WATER 50 ML IV SCH (13:31)
[2020-10-16] MEDS: LIDOCAINE 5% PATCH TOP SCH (13:32)
[2020-10-16] MEDS: HYDRALAZINE HCL 50MG TABLET PO SCH ×2 (13:33→21:51)
[2020-10-16] MEDS ORDERED: NALOXONE HCL 0.4MG/ML VIAL IV PRN (15:00)
[2020-10-16 16:00] VITALS: BP 148/82
[2020-10-16] MEDS: MORPHINE SULFATE 4 MG/ML CPJ (NOT FOR IM USE) IV PRN ×2 (16:37→23:39)
[2020-10-16] MEDS: ENOXAPARIN 40MG/0.4ML SYR SUBCUT SCH (16:37)
[2020-10-16 20:00] VITALS: BP 162/89
[2020-10-16] MEDS: TAMSULOSIN HCL 0.4MG SR CAPSULE PO SCH (21:00)
[2020-10-17] VITALS: BP 159/92
[2020-10-17 04:00] VITALS: BP 166/92
[2020-10-17] MEDS: SODIUM CHLORIDE 0.45% 1,000 ML IV SCH ×2 (04:41→17:56)
[2020-10-17] MEDS: GABAPENTIN 300MG CAPSULE PO SCH ×3 (05:31→22:07)
[2020-10-17] MEDS: HYDRALAZINE HCL 50MG TABLET PO SCH ×3 (05:31→22:11)
[2020-10-17] MEDS: MORPHINE SULFATE 4 MG/ML CPJ (NOT FOR IM USE) IV PRN ×3 (06:10→20:02)
[2020-10-17] MEDS: CLONIDINE 0.1MG TABLET PO PRN (06:11)
[2020-10-17] MEDS: PANTOPRAZOLE 40MG DR TABLET PO SCH (06:11)
[2020-10-17 06:30] LABS: BASOPHILS % 0.5 % (0.0-2.0); EOSINOPHILS % 0.7 % (0.0-5.0); HEMATOCRIT. 35.1 % (42.0-52.0); HEMOGLOBIN. 11.7 g/dL (14.0-18.0); LYMPHOCYTES % 40.6 % (20.0-50.0); MEAN CORPUSCULAR HEMOGLOBIN 28.6 pg (28.0-32.0); MEAN PLATELET VOLUME 9.6 fl (7.4-10.4); MONOCYTES % 10.5 % (2.0-8.0); NEUTROPHILS % 47.7 % (40.0-76.0); PLATELET 139 x1000/uL (130-400); RED BLOOD CELL COUNT 4.08 mill/uL (4.7-6.1); RED CELL DISTRIBUTION WIDTH 14.4 % (11.6-14.6)
[2020-10-17 06:47] LABS: CHLORIDE 108 mEq/L (98-107)
[2020-10-17 08:00] VITALS: BP 127/73
[2020-10-17] MEDS: SUCRALFATE 1G TABLET PO SCH ×4 (08:40→21:03)
[2020-10-17] MEDS: LOSARTAN POTASSIUM 50 MG TABLET PO SCH (08:40)
[2020-10-17] MEDS: AMLODIPINE 5MG TABLET PO SCH ×2 (08:40→21:03)
[2020-10-17] MEDS: ASPIRIN 81MG TABLET PO SCH (08:40)
[2020-10-17] MEDS: ENOXAPARIN 40MG/0.4ML SYR SUBCUT SCH (08:41)
[2020-10-17] MEDS: FOLIC ACID 1MG TABLET PO SCH (08:41)
[2020-10-17] MEDS: LIDOCAINE 5% PATCH TOP SCH (08:41)
[2020-10-17] MEDS ORDERED: REGADENOSON 0.4 MG/5 ML IV ONE (10:30)
[2020-10-17 12:00] VITALS: BP_SYST 133; BP_SYST 141; BP_DIAS 78; BP_DIAS 83
[2020-10-17] MEDS ORDERED: KCL 20MEQ/100ML PREMIX 100 ML IV SCH (12:00)
[2020-10-17] MEDS: CEFTRIAXONE 1,000 MG in DEXTROSE 5% WATER 50 ML IV SCH (12:34)
[2020-10-17 16:00] VITALS: BP_SYST 131; BP_SYST 138; BP_DIAS 81; BP_DIAS 85
[2020-10-17] MEDS: HYDROCODONE/ACETAMINOPHEN 5/325MG TABLET PO PRN (17:58)
[2020-10-17 20:00] VITALS: BP 166/102
[2020-10-17] MEDS: TAMSULOSIN HCL 0.4MG SR CAPSULE PO SCH (21:03)
[2020-10-18] VITALS: BP 172/78
[2020-10-18] MEDS: CLONIDINE 0.1MG TABLET PO PRN (00:19)
[2020-10-18] MEDS ORDERED: METOPROLOL TARTRATE 25MG TABLET PO STA (00:42)
[2020-10-18] MEDS: MORPHINE SULFATE 4 MG/ML CPJ (NOT FOR IM USE) IV PRN ×4 (01:06→21:44)
[2020-10-18 01:20] LABS: BASOPHILS % 0.6 % (0.0-2.0); HEMATOCRIT. 35.6 % (42.0-52.0); HEMOGLOBIN. 11.8 g/dL (14.0-18.0); LYMPHOCYTES % 41.8 % (20.0-50.0); MEAN CORPUSCULAR VOLUME 87.4 fL (80.0-94.0); MONOCYTES % 11.1 % (2.0-8.0); NEUTROPHILS % 45.5 % (40.0-76.0); PLATELET 142 x1000/uL (130-400); RED BLOOD CELL COUNT 4.07 mill/uL (4.7-6.1); RED CELL DISTRIBUTION WIDTH 14.4 % (11.6-14.6)
[2020-10-18 01:25] LABS: CHLORIDE 111 mEq/L (98-107)
[2020-10-18 04:00] VITALS: BP 123/72
[2020-10-18] MEDS: SODIUM CHLORIDE 0.45% 1,000 ML IV SCH ×2 (06:01→21:42)
[2020-10-18] MEDS: HYDRALAZINE HCL 50MG TABLET PO SCH ×3 (06:01→21:44)
[2020-10-18] MEDS: GABAPENTIN 300MG CAPSULE PO SCH ×3 (06:01→21:44)
[2020-10-18 06:43] LABS: BASOPHILS % 0.6 % (0.0-2.0); EOSINOPHILS % 1.5 % (0.0-5.0); HEMATOCRIT. 32.7 % (42.0-52.0); HEMOGLOBIN. 10.8 g/dL (14.0-18.0); LYMPHOCYTES % 43.3 % (20.0-50.0); MEAN CORPUSCULAR HEMOGLOBIN 28.6 pg (28.0-32.0); MEAN PLATELET VOLUME 9.6 fl (7.4-10.4); MONOCYTES % 10.2 % (2.0-8.0); NEUTROPHILS % 44.4 % (40.0-76.0); PLATELET 142 x1000/uL (130-400); RED BLOOD CELL COUNT 3.76 mill/uL (4.7-6.1); RED CELL DISTRIBUTION WIDTH 14.4 % (11.6-14.6)
[2020-10-18 06:50] LABS: CHLORIDE 111 mEq/L (98-107)
[2020-10-18 08:00] VITALS: BP 145/85
[2020-10-18] MEDS: AMLODIPINE 5MG TABLET PO SCH ×2 (08:37→21:43)
[2020-10-18] MEDS: LOSARTAN POTASSIUM 50 MG TABLET PO SCH (08:37)
[2020-10-18] MEDS: ENOXAPARIN 40MG/0.4ML SYR SUBCUT SCH (08:59)
[2020-10-18] MEDS: SUCRALFATE 1G TABLET PO SCH ×4 (08:59→21:42)
[2020-10-18] MEDS: FAMOTIDINE 20MG TABLET PO SCH ×2 (08:59→21:43)
[2020-10-18] MEDS: FOLIC ACID 1MG TABLET PO SCH (08:59)
[2020-10-18] MEDS: ASPIRIN 81MG TABLET PO SCH (08:59)
[2020-10-18 09:30] LABS: CHLORIDE 111 mEq/L (98-107)
[2020-10-18] MEDS ORDERED: REGADENOSON 0.4 MG/5 ML IV ONE (09:34)
[2020-10-18 12:00] VITALS: BP 115/73
[2020-10-18] MEDS: CEFTRIAXONE 1,000 MG in DEXTROSE 5% WATER 50 ML IV SCH (13:29)
[2020-10-18] MEDS: LIDOCAINE 5% PATCH TOP SCH (13:32)
[2020-10-18] MEDS ORDERED: METOPROLOL TARTRATE 25MG TABLET PO NR (14:45)
[2020-10-18 16:00] VITALS: BP 174/83
[2020-10-18 20:00] VITALS: BP 143/78
[2020-10-18] MEDS: TAMSULOSIN HCL 0.4MG SR CAPSULE PO SCH (21:42)
[2020-10-18] MEDS: METOPROLOL TARTRATE 25MG TABLET PO SCH (21:43)
[2020-10-19] VITALS: BP 163/83
[2020-10-19 04:00] VITALS: BP 168/75
[2020-10-19] MEDS: HYDRALAZINE HCL 50MG TABLET PO SCH ×3 (05:34→21:52)
[2020-10-19] MEDS: GABAPENTIN 300MG CAPSULE PO SCH ×3 (05:34→21:42)
[2020-10-19] MEDS: MORPHINE SULFATE 4 MG/ML CPJ (NOT FOR IM USE) IV PRN ×4 (05:35→21:43)
[2020-10-19 06:41] LABS: BASOPHILS % 0.7 % (0.0-2.0); EOSINOPHILS % 1.2 % (0.0-5.0); HEMATOCRIT. 34.2 % (42.0-52.0); HEMOGLOBIN. 11.4 g/dL (14.0-18.0); LYMPHOCYTES % 45.5 % (20.0-50.0); MEAN CORPUSCULAR HEMOGLOBIN 28.7 pg (28.0-32.0); MEAN CORPUSCULAR VOLUME 86.5 fL (80.0-94.0); MEAN PLATELET VOLUME 9.6 fl (7.4-10.4); MONOCYTES % 11.1 % (2.0-8.0); NEUTROPHILS % 41.5 % (40.0-76.0); PLATELET 161 x1000/uL (130-400); RED BLOOD CELL COUNT 3.96 mill/uL (4.7-6.1); RED CELL DISTRIBUTION WIDTH 14.3 % (11.6-14.6)
[2020-10-19 07:07] LABS: CHLORIDE 111 mEq/L (98-107)
[2020-10-19] MEDS: LOSARTAN POTASSIUM 50 MG TABLET PO SCH (08:57)
[2020-10-19] MEDS: ASPIRIN 81MG TABLET PO SCH (08:57)
[2020-10-19] MEDS: ENOXAPARIN 40MG/0.4ML SYR SUBCUT SCH (08:57)
[2020-10-19] MEDS: METOPROLOL TARTRATE 25MG TABLET PO SCH ×2 (08:58→21:40)
[2020-10-19] MEDS: AMLODIPINE 5MG TABLET PO SCH ×2 (08:58→21:41)
[2020-10-19] MEDS: FAMOTIDINE 20MG TABLET PO SCH ×2 (08:58→21:41)
[2020-10-19] MEDS: LIDOCAINE 5% PATCH TOP SCH (09:14)
[2020-10-19] MEDS: SODIUM CHLORIDE 0.45% 1,000 ML IV SCH ×2 (09:26→23:10)
[2020-10-19] MEDS ORDERED: METOPROLOL TARTRATE 25MG TABLET PO NR (10:30)
[2020-10-19 12:00] VITALS: BP 161/83
[2020-10-19] MEDS: CEFTRIAXONE 1,000 MG in DEXTROSE 5% WATER 50 ML IV SCH (13:59)
[2020-10-19] MEDS: SUCRALFATE 1G TABLET PO SCH ×4 (15:20→21:51)
[2020-10-19] MEDS: FOLIC ACID 1MG TABLET PO SCH (15:20)
[2020-10-19 16:00] VITALS: BP 175/94
[2020-10-19 20:00] VITALS: BP 172/88
[2020-10-19 21:19] VITALS: BP 178/93
[2020-10-19] MEDS: TAMSULOSIN HCL 0.4MG SR CAPSULE PO SCH (21:40)
[2020-10-19] MEDS: CLONIDINE 0.1MG TABLET PO PRN (21:43)
[2020-10-20] VITALS: BP 169/100
[2020-10-20] MEDS: MORPHINE SULFATE 4 MG/ML CPJ (NOT FOR IM USE) IV PRN ×4 (03:43→22:49)
[2020-10-20 04:00] VITALS: BP 135/83
[2020-10-20] MEDS: HYDRALAZINE HCL 50MG TABLET PO SCH (06:21)
[2020-10-20] MEDS: GABAPENTIN 300MG CAPSULE PO SCH ×3 (06:21→22:49)
[2020-10-20 08:00] VITALS: BP 181/82
[2020-10-20] MEDS: LIDOCAINE 5% PATCH TOP SCH (09:23)
[2020-10-20] MEDS: SUCRALFATE 1G TABLET PO SCH ×4 (09:25→20:49)
[2020-10-20] MEDS: METOPROLOL TARTRATE 25MG TABLET PO SCH ×2 (09:25→20:50)
[2020-10-20] MEDS: FOLIC ACID 1MG TABLET PO SCH (09:25)
[2020-10-20] MEDS: ENOXAPARIN 40MG/0.4ML SYR SUBCUT SCH (09:25)
[2020-10-20] MEDS: ASPIRIN 81MG TABLET PO SCH (09:25)
[2020-10-20] MEDS: AMLODIPINE 5MG TABLET PO SCH ×2 (09:26→20:49)
[2020-10-20] MEDS: FAMOTIDINE 20MG TABLET PO SCH ×2 (09:32→20:49)
[2020-10-20 12:00] VITALS: BP 127/84
[2020-10-20] MEDS: HYDRALAZINE HCL 100MG TABLET PO SCH ×2 (14:35→22:50)
[2020-10-20] MEDS: CEFTRIAXONE 1,000 MG in DEXTROSE 5% WATER 50 ML IV SCH (14:35)
[2020-10-20] MEDS: SODIUM CHLORIDE 0.45% 1,000 ML IV SCH (14:56)
[2020-10-20 16:00] VITALS: BP 194/100
[2020-10-20] MEDS ORDERED: LOSARTAN POTASSIUM 50 MG TABLET PO SCH (17:00)
[2020-10-20] MEDS: CLONIDINE 0.1MG TABLET PO PRN (17:17)
[2020-10-20 20:00] VITALS: BP 172/96
[2020-10-20] MEDS: TAMSULOSIN HCL 0.4MG SR CAPSULE PO SCH (20:49)
[2020-10-20] MEDS: LOSARTAN POTASSIUM 50 MG TABLET PO SCH (20:52)
[2020-10-20] MEDS ORDERED: MAGNESIUM CITRATE 300ML SOLUTION PO NR (23:30)
[2020-10-21] VITALS (7 sets, daily range): BP systolic 148–169; BP diastolic 75–94
[2020-10-21] MEDS: SODIUM CHLORIDE 0.45% 1,000 ML IV SCH ×3 (02:40→22:22)
[2020-10-21] MEDS: GABAPENTIN 300MG CAPSULE PO SCH ×3 (05:23→21:17)
[2020-10-21] MEDS: HYDRALAZINE HCL 100MG TABLET PO SCH ×3 (05:23→21:16)
[2020-10-21] MEDS: MORPHINE SULFATE 4 MG/ML CPJ (NOT FOR IM USE) IV PRN ×2 (05:23→12:34)
[2020-10-21] MEDS: LOSARTAN POTASSIUM 50 MG TABLET PO SCH ×2 (09:55→21:17)
[2020-10-21] MEDS: AMLODIPINE 5MG TABLET PO SCH ×2 (09:56→21:16)
[2020-10-21] MEDS: FAMOTIDINE 20MG TABLET PO SCH ×2 (09:57→21:17)
[2020-10-21] MEDS: SUCRALFATE 1G TABLET PO SCH ×4 (09:57→21:17)
[2020-10-21] MEDS: FOLIC ACID 1MG TABLET PO SCH (09:57)
[2020-10-21] MEDS: METOPROLOL TARTRATE 25MG TABLET PO SCH ×2 (09:58→21:17)
[2020-10-21] MEDS: ASPIRIN 81MG TABLET PO SCH (09:59)
[2020-10-21] MEDS: ENOXAPARIN 40MG/0.4ML SYR SUBCUT SCH (10:02)
[2020-10-21] MEDS: LIDOCAINE 5% PATCH TOP SCH (10:04)
[2020-10-21] MEDS ORDERED: MORPHINE SULFATE 4 MG/ML CPJ (NOT FOR IM USE) IV NR (19:30)
[2020-10-21] MEDS: TAMSULOSIN HCL 0.4MG SR CAPSULE PO SCH (21:16)
[2020-10-22] VITALS: BP 138/85
[2020-10-22] MEDS: ACETAMINOPHEN 325MG TABLET PO PRN ×4 (03:09→13:28)
[2020-10-22] MEDS: NITROGLYCERIN 0.4MG TABLET SL SL PRN ×6 (03:09→15:43)
[2020-10-22 04:00] VITALS: BP_SYST 128; BP_SYST 130; BP_DIAS 77; BP_DIAS 86
[2020-10-22] MEDS: GABAPENTIN 300MG CAPSULE PO SCH ×3 (06:00→21:02)
[2020-10-22] MEDS: HYDRALAZINE HCL 100MG TABLET PO SCH ×3 (06:00→21:02)
[2020-10-22 08:00] VITALS: BP 144/82
[2020-10-22] MEDS: LOSARTAN POTASSIUM 50 MG TABLET PO SCH ×2 (08:51→20:34)
[2020-10-22] MEDS: ASPIRIN 81MG TABLET PO SCH (08:51)
[2020-10-22] MEDS: FOLIC ACID 1MG TABLET PO SCH (08:51)
[2020-10-22] MEDS: METOPROLOL TARTRATE 25MG TABLET PO SCH ×2 (08:51→20:34)
[2020-10-22] MEDS: SUCRALFATE 1G TABLET PO SCH ×4 (08:51→20:33)
[2020-10-22] MEDS: AMLODIPINE 5MG TABLET PO SCH ×2 (08:52→20:33)
[2020-10-22] MEDS: LIDOCAINE 5% PATCH TOP SCH (08:54)
[2020-10-22] MEDS: ENOXAPARIN 40MG/0.4ML SYR SUBCUT SCH (09:01)
[2020-10-22] MEDS: FAMOTIDINE 20MG TABLET PO SCH ×2 (09:05→20:34)
[2020-10-22 12:00] VITALS: BP 121/76
[2020-10-22 16:00] VITALS: BP 132/81
[2020-10-22] MEDS: MORPHINE SULFATE 4 MG/ML CPJ (NOT FOR IM USE) IV PRN ×2 (17:12→23:10)
[2020-10-22] MEDS: CLONIDINE 0.1MG TABLET PO PRN (17:46)
[2020-10-22] MEDS: SODIUM CHLORIDE 0.45% 1,000 ML IV SCH (18:00)
[2020-10-22 20:00] VITALS: BP 118/74
[2020-10-22] MEDS: TAMSULOSIN HCL 0.4MG SR CAPSULE PO SCH (20:34)
[2020-10-23] VITALS (7 sets, daily range): BP systolic 121–174; BP diastolic 70–90
[2020-10-23] MEDS: MORPHINE SULFATE 4 MG/ML CPJ (NOT FOR IM USE) IV PRN ×3 (05:01→19:24)
[2020-10-23] MEDS: HYDRALAZINE HCL 100MG TABLET PO SCH ×3 (05:01→21:28)
[2020-10-23] MEDS: GABAPENTIN 300MG CAPSULE PO SCH ×3 (05:01→21:27)
[2020-10-23] MEDS: SODIUM CHLORIDE 0.45% 1,000 ML IV SCH (06:28)
[2020-10-23] MEDS: FOLIC ACID 1MG TABLET PO SCH (09:23)
[2020-10-23] MEDS: ASPIRIN 81MG TABLET PO SCH (09:23)
[2020-10-23] MEDS: FAMOTIDINE 20MG TABLET PO SCH ×2 (09:23→21:28)
[2020-10-23] MEDS: SUCRALFATE 1G TABLET PO SCH ×4 (09:23→21:28)
[2020-10-23] MEDS: LOSARTAN POTASSIUM 50 MG TABLET PO SCH ×2 (09:23→21:28)
[2020-10-23] MEDS: AMLODIPINE 5MG TABLET PO SCH ×2 (09:24→21:28)
[2020-10-23] MEDS: METOPROLOL TARTRATE 25MG TABLET PO SCH ×2 (09:24→21:27)
[2020-10-23] MEDS: ENOXAPARIN 40MG/0.4ML SYR SUBCUT SCH (09:25)
[2020-10-23] MEDS: LIDOCAINE 5% PATCH TOP SCH (09:25)
[2020-10-23 17:45] LABS: CLARITY URINE CLEAR (CLEAR); COLOR URINE YELLOW (YELLOW); KETONES URINE TRACE (NEGATIVE); LEUKOCYTE ESTERASE URINE NEGATIVE (NEGATIVE); NITRITE URINE NEGATIVE (NEGATIVE); OCCULT BLOOD URINE NEGATIVE (NEGATIVE); PROTEIN URINE NEGATIVE (NEGATIVE); SPECIFIC GRAVITY URINE 1.009 (1.005-1.030); UROBILINOGEN URINE 0.2 E.U./dL (0.2-1.0)
[2020-10-23] MEDS: CLONIDINE 0.1MG TABLET PO PRN (19:25)
[2020-10-23] MEDS: TAMSULOSIN HCL 0.4MG SR CAPSULE PO SCH (21:28)
[2020-10-24] VITALS: BP 102/77
[2020-10-24] MEDS: MORPHINE SULFATE 4 MG/ML CPJ (NOT FOR IM USE) IV PRN ×3 (01:20→14:06)
[2020-10-24 04:00] VITALS: BP 160/79
[2020-10-24] MEDS: GABAPENTIN 300MG CAPSULE PO SCH ×2 (06:05→14:05)
[2020-10-24] MEDS: HYDRALAZINE HCL 100MG TABLET PO SCH ×2 (06:05→14:05)
[2020-10-24] MEDS: SODIUM CHLORIDE 0.45% 1,000 ML IV SCH ×2 (06:09→10:05)
[2020-10-24 08:00] VITALS: BP 134/76
[2020-10-24] MEDS: LIDOCAINE 5% PATCH TOP SCH (08:39)
[2020-10-24] MEDS: FOLIC ACID 1MG TABLET PO SCH (08:40)
[2020-10-24] MEDS: ASPIRIN 81MG TABLET PO SCH (08:40)
[2020-10-24] MEDS: FAMOTIDINE 20MG TABLET PO SCH (08:40)
[2020-10-24] MEDS: METOPROLOL TARTRATE 25MG TABLET PO SCH (08:40)
[2020-10-24] MEDS: LOSARTAN POTASSIUM 50 MG TABLET PO SCH (08:40)
[2020-10-24] MEDS: AMLODIPINE 5MG TABLET PO SCH (08:40)
[2020-10-24] MEDS: ENOXAPARIN 40MG/0.4ML SYR SUBCUT SCH (08:41)
[2020-10-24] MEDS: SUCRALFATE 1G TABLET PO SCH ×3 (08:41→17:31)
[2020-10-24] MEDS ORDERED: BISACODYL 10MG SUPP PR SCH (11:30)
[2020-10-24] MEDS ORDERED: LACTULOSE 20G/30ML UDC PO SCH (11:30)
[2020-10-24 12:00] VITALS: BP 141/78
[2020-10-24] MEDS: NITROGLYCERIN 0.4MG TABLET SL SL PRN (12:24)
[2020-10-24 15:47] VITALS: BP 132/72
[2020-10-24 16:00] VITALS: BP 155/81
== END 2020-10-24 18:00 | DRG 73 ==
LOC: ER 14:30 → 8WST 17:50 → ENRESERV 21:47
PROVIDERS: ADMIT Internal Medicine; ATTEND Internal Medicine
PROC: 5A12012 Performance of Cardiac Output, Single, Manual (ICD-10-PCS; principal; 2020-10-14)
DX: G90.8 Other disorders of autonomic nervous system (principal); J18.9 Pneumonia, unspecified organism; I50.33 Acute on chronic diastolic (congestive) heart failure; I13.0 Hypertensive heart and chronic kidney disease with heart failure and stage 1 through stage 4 chronic kidney disease, or unspecified chronic kidney disease; N17.9 Acute kidney failure, unspecified; I47.2 Ventricular tachycardia; I49.5 Sick sinus syndrome; I49.9 Cardiac arrhythmia, unspecified; M94.0 Chondrocostal junction syndrome [Tietze]; I48.0 Paroxysmal atrial fibrillation; D63.8 Anemia in other chronic diseases classified elsewhere; E86.0 Dehydration; E87.6 Hypokalemia; F10.10 Alcohol abuse, uncomplicated; I25.10 Atherosclerotic heart disease of native coronary artery without angina pectoris; Z20.822 Contact with and (suspected) exposure to COVID-19; N18.9 Chronic kidney disease, unspecified; N40.1 Benign prostatic hyperplasia with lower urinary tract symptoms; K21.9 Gastro-esophageal reflux disease without esophagitis; G62.9 Polyneuropathy, unspecified; R33.8 Other retention of urine; Y90.9 Presence of alcohol in blood, level not specified; K59.00 Constipation, unspecified; Z86.711 Personal history of pulmonary embolism; Z86.73 Personal history of transient ischemic attack (TIA), and cerebral infarction without residual deficits; Z79.891 Long term (current) use of opiate analgesic; Z79.899 Other long term (current) drug therapy; Z79.1 Long term (current) use of non-steroidal anti-inflammatories (NSAID); Z82.49 Family history of ischemic heart disease and other diseases of the circulatory system; Z91.81 History of falling
CPT/HCPCS: 36415; 71045; 71250; 74018; 78452; 78580; 80048; 80053; 80305; 81003; 82550; 82553; 82962; 83735; 83880; 84153; 84484; 85025; 85379; 86850; 86900; 87426; 93005; 93017; 93306; 93880; 93970; 97162; 97530; 99285; A9500; C1893; G0378; J0696; J1650; J2270; J2405; J2785; J3480; J7060; A4315; G0103